=== PATIENT | female | born 1995 | race Hispanic/Latino ===

== ENCOUNTER → 2023-02-13 | Outpatient (CLI) | payer OTHER ==
[~2023-02-13] MED LIST: DESMOPRESSIN A0.2 MG PO; GADOBENATE DIMEGLUMINE 1 ML IV ONE; HYDROCORTISONE10 MG PO; OSTERA TABLET1 EACH PO; PREMARIN0.625 MG PO; SYNTHROID125 MCG PO; VITAMIN E400 UNIT PO
== END ==
LOC: MRI 08:46
PROVIDERS: ATTEND Pediatrics
DX: G40.901 Epilepsy, unspecified, not intractable, with status epilepticus (principal); D68.62 Lupus anticoagulant syndrome; R94.02 Abnormal brain scan
CPT/HCPCS: 70544; 70549; 70553

== ENCOUNTER 2023-02-27 12:36 | Emergency (ER) | payer OTHER ==
[~2023-02-27] VITALS: Ht 162.6 cm; Wt 63.5 kg
[~2023-02-27 12:36] MED LIST changes: -GADOBENATE DIMEGLUMINE 1 ML IV ONE
[2023-02-27] MEDS ORDERED: DICYCLOMINE HCL 20 MG TAB PO ONE (13:00)
[2023-02-27] MEDS ORDERED: ONDANSETRON HCL INJ 2MG/ML 2ML 2 MG/ML VIAL IV PRN (13:00)
[2023-02-27] MEDS ORDERED: SODIUM CHLORIDE 0.9% 1000ML 1,000 ML IV ONE (13:00)
[2023-02-27 13:26] LABS: BASOPHILS % 0.3 % (0.0-1.0); EOSINOPHILS # (AUTO) 0.1 (0.0-0.4); EOSINOPHILS % 1.9 % (0.0-6.0); HEMATOCRIT 33.1 % (34.2-44.1); HEMOGLOBIN 11.9 g/dL (12.0-16.0); LYMPHOCYTES # (AUTO) 1.1 (1.0-3.2); LYMPHOCYTES % 35.4 % (18.0-39.1); MEAN CORPUSCULAR HEMOGLOBIN 31.8 pg (28-32); MEAN CORPUSCULAR VOLUME 88.5 fL (81-99); MONOCYTES # (AUTO) 0.2 (0.2-0.8); MONOCYTES % 5.4 % (4.4-11.3); NEUTROPHILS # (AUTO) 1.8 (2.1-6.9); NEUTROPHILS % 56.7 % (38.7-80.0); PLATELET COUNT 121 x10e3/uL (140-360); RED BLOOD COUNT 3.74 x10e6/uL (3.6-5.1); RED CELL DISTRIBUTION WIDTH 12.4 % (11.7-14.4)
[2023-02-27 13:47] LABS: ALBUMIN 4.4 g/dL (3.5-5.0); ALBUMIN/GLOBULIN RATIO 1.3 (0.8-2.0); ANION GAP 12.9 mmol/L (8-16); CALCIUM 9.2 mg/dL (8.4-10.2); CREATININE, SERUM 0.85 mg/dL (0.57-1.11); MAGNESIUM 1.9 MG/DL (1.3-2.1); PHOSPHORUS 3.4 MG/DL (2.3-4.7); POTASSIUM 3.9 mmol/L (3.5-5.1)
[2023-02-27 13:49] LABS: CLARITY,URINE CLEAR (CLEAR); COLOR,URINE YELLOW (YELLOW); KETONES,URINE NEGATIVE (NEGATIVE); LEUKOCYTE ESTERASE ,URINE NEGATIVE (NEGATIVE); NITRITE,URINE NEGATIVE (NEGATIVE); PROTEIN,URINE DIPSTICK NEGATIVE (NEGATIVE); URINE UROBILINOGEN 0.2 mg/dL (0.2 - 1)
[2023-02-27] MEDS ORDERED: DICYCLOMINE HCL20 MG PO (14:31)
[2023-02-27] MEDS ORDERED: ONDANSETRON ODT4 MG PO (14:31)
== END 2023-02-27 14:57 | disposition home or self-care (01) ==
LOC: ER 12:46
DX: R11.2 Nausea with vomiting, unspecified (principal); R19.7 Diarrhea, unspecified; M32.9 Systemic lupus erythematosus, unspecified; G40.909 Epilepsy, unspecified, not intractable, without status epilepticus
CPT/HCPCS: 36415; 74018; 80053; 81001; 83735; 84100; 84702; 85025; 99284; J2405; J7030